=== PATIENT | male | born 1960 | race Caucasian/White ===

== ENCOUNTER → 2017-10-11 | Outpatient (CLI) | payer BC ==
[~2017-10-11] MED LIST: BUPIVACAINE MPF 0.25% 10 ML VIAL. ONE; methylPREDNISolone ACETATE 40 MG/ML VIAL. ONE
== END | disposition home or self-care (01) ==
LOC: SURG 14:44
PROVIDERS: ATTEND Anesthesiology Pain Medicine
DX: M47.816 Spondylosis without myelopathy or radiculopathy, lumbar region (principal); Z72.89 Other problems related to lifestyle
CPT/HCPCS: 64493; 64494; J1030; J3490; 20553; 77002

== ENCOUNTER → 2019-03-06 | Outpatient (CLI) | payer BC ==
[~2019-03-06] MED LIST changes: +0.9 % SODIUM CHLORIDE 10 ML VIAL ONE; +DEXAMETHASONE SOD PHOS 10 MG/ML VIAL ONE; +IOHEXOL 300 MG/ML 50 ML VIAL. ONE; +LIDOCAINE 1% PF 30 ML VIAL. ONE; -methylPREDNISolone ACETATE 40 MG/ML VIAL. ONE
== END | disposition home or self-care (01) ==
LOC: SURG 13:28
PROVIDERS: ATTEND Anesthesiology Pain Medicine
DX: M54.12 Radiculopathy, cervical region (principal); E78.00 Pure hypercholesterolemia, unspecified; M19.90 Unspecified osteoarthritis, unspecified site; Z79.899 Other long term (current) drug therapy; Z79.82 Long term (current) use of aspirin
CPT/HCPCS: 62321; J1100; J2001; J3490; Q9967

== ENCOUNTER → 2020-09-14 | Outpatient (CLI) | payer BC ==
[~2020-09-14] MED LIST changes: -0.9 % SODIUM CHLORIDE 10 ML VIAL ONE; -BUPIVACAINE MPF 0.25% 10 ML VIAL. ONE; +BUPIVACAINE MPF 0.25% 30 ML VIAL. ONE; -DEXAMETHASONE SOD PHOS 10 MG/ML VIAL ONE; -IOHEXOL 300 MG/ML 50 ML VIAL. ONE; -LIDOCAINE 1% PF 30 ML VIAL. ONE; +methylPREDNISolone ACETATE 40 MG/ML VIAL. ONE
[2020-09-14 13:10] VITALS: BP 144/95
== END | disposition home or self-care (01) ==
LOC: SURG 12:03
PROVIDERS: ATTEND Anesthesiology
DX: M54.2 Cervicalgia (principal); M47.812 Spondylosis without myelopathy or radiculopathy, cervical region; M79.18 Myalgia, other site; M50.30 Other cervical disc degeneration, unspecified cervical region; E78.00 Pure hypercholesterolemia, unspecified; M19.90 Unspecified osteoarthritis, unspecified site; Z79.899 Other long term (current) drug therapy; Z72.89 Other problems related to lifestyle
CPT/HCPCS: 20553; J1030; J3490